=== PATIENT | female | born 1985 | race Caucasian/White ===

== ENCOUNTER → 2023-10-05 | Outpatient (CLI) | payer OTHER ==
--- NOTE | 2023-10-16 14:13 | MR ---
EXAMINATION TYPE: MR brain/cspine wo/w DATE OF EXAM: 10/05/2023 3:12 PM CLINICAL INDICATION:Female, 38 years old with history of G35 MULTIPLE sclerosis; PHH, MS, pain, numbn ess, weakness, headaches COMPARISON: 07/24/2022. TECHNIQUE: Multi planar, multi sequence imaging was performed through the brain including: T1, T2, Inversion rec overy, Diffusion weighted imaging, and gradient echo imaging. No gadolinium was given. Multi planar, multi sequence imaging was performed utilizing: T1-weighted, T2-weighted, and turbo inv ersion recovery imaging of the cervical spine. IV Contrast: 6.5 cc Gadavist FINDINGS: The glynn-white junctions, ventricular system, basal cisterns appear unremarkable. A few scattered are as of white matter change including right temporal lobe series 1701 image 230, image 205 as well as i mage and 212. The image 205 lesion is not seen on prior. Midline structures show no abnormality. Diff usion-weighted imaging shows no evidence of restricted diffusion. The susceptibility weighted images focus of blooming artifact within the right temporal lobe series 501 image 329. The bone marrow signal is within normal limits. Paranasal sinuses and mastoid air cells: No significant paranasal sinus disease. Visualized orbits: Orbital contents are intact. Alignment: The cervical vertebral bodies have preserved heights. Alignment is within normal limits gi merna patient positioning. Bones: Bone signal is within normal limits. No abnormal bone marrow edema on inversion recovery seque nces. Cord: There is subtle cord signal abnormalities best appreciated on sagittal imaging T2-weighted seri es 901 image 8. No abnormal postcontrast enhancement is seen within the sections. The first is at the level of C2 centrally in the spinal cord the same area C3 and C5. Discs: Intervertebral disc signal is maintained. C2-C3: No significant disc pathology. The spinal canal is patent. No neural foraminal stenosis. C3-C4: No significant disc pathology. The spinal canal is patent. No neural foraminal stenosis. C4-C5: No significant disc pathology. The spinal canal is patent. No neural foraminal stenosis. C5-C6: No significant disc pathology. The spinal canal is patent. No neural foraminal stenosis. C6-C7: No significant disc pathology. The spinal canal is patent. No neural foraminal stenosis. C7-T1: No significant disc pathology. The spinal canal is patent. No neural foraminal stenosis. Other: None. IMPRESSION: 1. No evidence for active demyelination. Few small foci of white matter change in the right temporal lobe at least one of which was not seen on prior, the others remain stable. 2. Subtle areas of cord signal abnormality within the cervical spine are not significantly changed f rom prior on 07/24/2022. 3. No evidence for disc herniation or significant spinal canal stenosis. 4. Minimal disc degeneration with associated osteoarthritic changes. 5. No evidence of intracranial mass or acute/subacute infarct. 6. 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
== END | disposition home or self-care (01) ==
LOC: RADMRIMAIN 14:04
PROVIDERS: ATTEND Psychiatry & Neurology Neurology
DX: G93.89 Other specified disorders of brain (principal); M47.812 Spondylosis without myelopathy or radiculopathy, cervical region; M50.30 Other cervical disc degeneration, unspecified cervical region; G35 Multiple sclerosis; R53.1 Weakness; R20.0 Anesthesia of skin
CPT/HCPCS: 70553; 72156; A9585

== ENCOUNTER → 2023-10-06 | Outpatient (CLI) | payer OTHER ==
--- NOTE | 2023-10-09 16:43 | MR ---
EXAMINATION TYPE: MR thoracic spine wo/w con DATE OF EXAM: 10/06/2023 5:31 PM CLINICAL INDICATION:Female, 38 years old with history of G35 Multiple sclerosis; PHH, MS COMPARISON: No priors. TECHNIQUE: Multi planar, multi sequence imaging was performed utilizing: T1-weighted, short-tau inver vahid recovery and T2-weighted of the thoracic spine. IV Contrast: 6.5 cc Gadavist (none if empty) FINDINGS: Alignment: Alignment is within normal limits. Vertebral bodies have preserved heights. Spinal cord: Spinal cord is within normal limits for signal. No abnormal postcontrast enhancement. Discs: Intervertebral disc signal is maintained. No evidence of significant spinal canal or neural fo raminal stenosis. There is no evidence of extradural defects or central spinal canal narrowing at any thoracic vertebral body level. No abnormal postcontrast enhancement. Osseous structures: No abnormal bony edema on inversion recovery sequences. No significant degenerati on. Disc spaces are well-preserved. IMPRESSION: No abnormal postcontrast enhancement. No evidence for demyelination.
== END | disposition home or self-care (01) ==
LOC: RADMRIMAIN 16:27
PROVIDERS: ATTEND Psychiatry & Neurology Neurology
DX: G35 Multiple sclerosis (principal)
CPT/HCPCS: 72157; A9585